=== PATIENT | female | born 1970 | race Caucasian/White ===

== ENCOUNTER → 2018-06-11 | Outpatient (CLI) | payer BC ==
[~2018-06-11] MED LIST: AYGESTIN; Aygestin5 MG; ESOM20 PO; TRIHYD253B
== END | disposition home or self-care (01) ==
LOC: LAB SHORT 13:28 → PLD 13:28
DX: D22.61 Melanocytic nevi of right upper limb, including shoulder (principal)
CPT/HCPCS: 88305

== ENCOUNTER → 2019-07-09 | Outpatient (CLI) | payer BC ==
[2019-07-11 13:07] LABS: HPV 16 Negative (Negative); HPV 18 Negative (Negative); HPV OTHER HR TYPES Negative (Negative)
== END | disposition home or self-care (01) ==
LOC: LAB SHORT 17:30 → LAB 17:30
PROVIDERS: Obstetrics & Gynecology Gynecology
DX: Z12.4 Encounter for screening for malignant neoplasm of cervix (principal)
CPT/HCPCS: 87624; G0123

== ENCOUNTER → 2020-12-01 | Outpatient (CLI) | payer OTHER ==
[2020-12-01 15:45] LABS: Source, Urine Clean Catch
[2020-12-01 16:37] LABS: Appearance, Urine Clear (Clear); Bilirubin, Urine Neg (Neg); Blood, Urine Neg (Neg); Color, Urine Amber (P-Yellow); Glucose Qualitative, Urine Neg (Neg); Ketones, Urine 2+ (Neg); Leukocyte Esterase, Urine 1+ (Neg); Nitrite, Urine Neg (Neg); Protein, Urine 2+ (Neg); Specific Gravity, Urine 1.015 (1.003-1.022); Urobilinogen, Urine 1+ (Normal); pH, Urine 6.5 (5.0-8.0)
[2020-12-01 16:48] LABS: Bacteria Many /hpf; Red Blood Cells, Urine Not Seen /hpf (0-2); Squamous Epithelial Cells Few /hpf (Few)
== END | disposition home or self-care (01) ==
LOC: LAB SHORT 15:44
PROVIDERS: Internal Medicine
DX: R31.21 Asymptomatic microscopic hematuria (principal); Q60.0 Renal agenesis, unilateral
CPT/HCPCS: 81001; 87086

== ENCOUNTER → 2021-10-12 | Outpatient (CLI) | payer BC | END | disposition home or self-care (01) | LOC: PLD 07:24 → LAB SHORT 07:24 | DX: D22.5 Melanocytic nevi of trunk (principal) | CPT/HCPCS: 88305 ==

== ENCOUNTER 2023-06-06 13:17 | Day surgery (SDC) | payer BC ==
[~2023-06-06] VITALS: Ht 162.6 cm; Wt 70.9 kg
[2023-06-06] MEDS ORDERED: METAMUCIL POWD798 GM (13:50)
[2023-06-06] MEDS ORDERED: ERGO400 (13:50)
[2023-06-06 15:21] VITALS: BP 113/77
== END 2023-06-06 15:13 | disposition home or self-care (01) ==
LOC: ORSCSDS 13:17
PROVIDERS: Internal Medicine Gastroenterology
PROC: 0DJD8ZZ Inspection of Lower Intestinal Tract, Via Natural or Artificial Opening Endoscopic (ICD-10-PCS; principal; 2023-06-06 14:30)
DX: Z12.11 Encounter for screening for malignant neoplasm of colon (principal); Z86.010 Personal history of colon polyps; K57.30 Diverticulosis of large intestine without perforation or abscess without bleeding
CPT/HCPCS: J1980; J2704; J7120

== ENCOUNTER → 2023-09-06 | Outpatient (CLI) | payer BC ==
[~2023-09-06] MED LIST changes: +ERGO400; +METAMUCIL POWD798 GM
[2023-09-07 15:11] LABS: CALCIUM, SERUM 9.9 mg/dL (8.7-10.2); CREATININE, SERUM 1.3 mg/dL (0.57-1.00); POTASSIUM, SERUM 4.3 mmol/L (3.5-5.2)
== END ==
LOC: LAB SHORT 11:04 → LAB 11:04
PROVIDERS: Internal Medicine
DX: Z09 Encounter for follow-up examination after completed treatment for conditions other than malignant neoplasm (principal); Z90.5 Acquired absence of kidney
CPT/HCPCS: 80048